=== PATIENT | male | born 1950 | race Hispanic/Latino ===

== ENCOUNTER 2017-11-22 15:28 | Emergency (ER) | payer BC ==
--- OUTSIDE RECORDS SUMMARY | 2017-11-22 15:30 | XMS REPORT ---
:1950 Author Organization eClinicalWorks Care Team Providers Name Role Phone Cresencio Radha Provider Role Unavailable Allergies, Adverse Reactions, Alerts Substance Reaction Event Type penicillin Info Not Available Drug Allergy Amoxicillin Info Not Available Drug Allergy Problems Problem Type Condition Code Onset Dates Condition Status Problem Transient ischemic attack G45.9 Active Problem Overweight E66.3 Active Problem Macular degeneration H35.30 Active Problem Benign prostatic hypertrophy with N40.1 Active lower urinary tract symptoms (LUTS) Problem Paresthesia of both hands R20.2 Active Problem BPH w/o urinary obs/LUTS N40.0 Active Problem GERD (gastroesophageal reflux K21.9 Active disease) Problem Anemia D64.9 Active Problem History of transient ischemic attack Z86.73 Active (TIA) Problem Adult general medical examination Z00.00 Active Problem Vitamin D deficiency E55.9 Active Problem Dizziness R42 Active Assessment BPH w/o urinary obs/LUTS N40.0 Active Problem Hyperlipidemia E78.5 Active Problem Primary insomnia F51.01 Active Problem Diverticulosis of colon (without K57.30 Active mention of hemorrhage) Medications Medication Code Code Instructions Start End Status Dosage System Date Date Lipitor [facility] 01719012045 10 MG Orally Active 1 tablet Once a day Aspir-Low [facility] 52209895168 81 MG Orally Active 1 tablet Once a day ProAir HFA [facility] 75423393989 108 (90 Base) Active 2 puffs as MCG/ACT needed Inhalation every 6 hrs Glucosamine ND 79147151429 - Orally Active not Chondroitin Plus defined Ambien [facility] 08837163641 10 MG Orally Active 1 tablet Once a day at bedtime as needed Vitamin A [facility] 92150433507 8000 UNIT Active not Orally defined Daily Vitamins [facility] 03848336534 - Orally Once a Active 1 tablet day Clarithromycin ND 75936661839 500 MG Orally Active 1 tablet every 12 hrs Trazodone HCl ND 45181227473 100 MG Orally Active 1 tablet Once a day at bedtime Protonix ND 66102221363 40 MG Orally Sep 04, Active 1 tablet Once a day 2017 Celebrex [facility] 64011167339 200 MG Orally Active 1 capsule Once a day with food Fish Oil [facility] 07094674301 1200 MG Orally Active 2 capsule Once a day Results No Known Results Summary Purpose eClinicalWorks Submission
--- NOTE | 2017-11-22 16:53 | ER ---
Nurse's Notes [facility] Name: Oleksandr Caldera Age: 67 yrs Sex: Male : 1950 Arrival Date: 11/22/2017 Time: 15:29 Bed 14 Private MD: Diagnosis: Acute sinusitis;Headache Presentation: 11/22 15:38 Presenting complaint: Patient states: Headache with light sensitivity that started aj Thursday. Patient reports having Sinus SX 1 week before headache started. Transition of care: patient was not received from another setting of care. Mechanism of Injury: No Mechanism of Injury. The patient denies any loss of vision. Onset of symptoms was November 20, 2017. Initial Sepsis Screen: Does the patient meet any 2 criteria? No. Patient's initial sepsis screen is negative. Does the patient have a suspected source of infection? No. Patient's initial sepsis screen is negative. Care prior to arrival: None. 15:38 Method Of Arrival: Ambulatory aj 15:38 Acuity: TAMANNA 3 aj Triage Assessment: 15:40 General: Appears in no apparent distress. uncomfortable, Behavior is calm, cooperative, aj appropriate for age. Pain: Complains of pain in face and right eye Pain currently is 8 out of 10 on a pain scale. EENT: Reports pain in right eye and left eye. Neuro: Level of Consciousness is awake, alert, obeys commands, Oriented to person, place, time, situation, Appropriate for age Gait is steady, Reports headache. Respiratory: Airway is patent Respiratory effort is even, unlabored, Respiratory pattern is regular, symmetrical. GI: Abdomen is flat, non-distended, Reports nausea. Derm: Skin is intact, is healthy with good turgor, Skin is pink, warm \T\ dry. normal. Historical: - Allergies: 15:40 PENICILLINS; aj - Home Meds: 15:40 Ambien Oral [Active]; Baclofen Oral [Active]; Elavil [Active]; Lipitor Oral [Active]; aj losartan-hydrochlorothiazide Oral [Active]; Protonix Oral [Active]; - PMHx: 15:40 cardiac stents; chronic neck pain; Diverticulitis; Hypertension; aj - PSHx: 15:40 Appendectomy; cardiac cath; diverticulitis repair; Sinus; aj - Immunization history:: Adult Immunizations up to date. - Social history:: Smoking status: Patient/guardian denies using tobacco. Screenin:02 Abuse screen: Denies threats or abuse. Nutritional screening: No deficits noted. la1 Tuberculosis screening: No symptoms or risk factors identified. Fall Risk None identified. Assessment: 16:01 General: Appears uncomfortable, Behavior is calm, cooperative. Pain: Complains of pain la1 in left zoroastrianism and left eye and right eye. Neuro: Level of Consciousness is awake, alert, obeys commands, Oriented to person, place, time, situation, Cable Splicer Helper are equal bilaterally Facial symmetry appears normal, Pupils are PERRLA. Cardiovascular: Capillary refill < 3 seconds Patient's skin is warm and dry. Respiratory: Airway is patent Respiratory effort is even, unlabored, Respiratory pattern is regular, symmetrical, Breath sounds are clear bilaterally. GI: No signs and/or symptoms were reported involving the gastrointestinal system. : No signs and/or symptoms were reported regarding the genitourinary system. EENT: Eyes pt reports photosensitivity. Sclera/Cornea are clear in outer aspect of conjuctiva of right eye, iris of right eye, inner aspect of conjuctiva of right eye, outer aspect of conjuctiva of left eye, iris of left eye and inner aspect of conjunctiva of left eye. Vital Signs: 15:40 BP 140 / 77; Pulse 71; Resp 16; Temp 98.3; Pulse Ox 97% on R/A; Weight 82.55 kg; Height aj 5 ft. 8 in. (172.72 cm); Pain 8/10; 15:40 Body Mass Index 27.67 (82.55 kg, 172.72 cm) aj ED Course: 15:29 Patient arrived in ED. sb2 15:39 Triage completed. aj 15:40 Arm band placed on right wrist. Patient placed in waiting room. aj 15:53 Chavez Calixto, BENY is Primary Nurse. la1 15:54 Marichuy Carver F[facility]-C [facility]. snw 15:54 Ba Jerez MD is Attending Physician. snw 16:03 Call light in reach. la1 16:25 CT Head Brain wo Cont In Process Unspecified. EDMS 17:10 No provider procedures requiring assistance completed. Patient did not have IV access la1 during this emergency room visit. Administered Medications: 17:05 Drug: LevaQUIN 500 mg Route: PO; la1 17:10 Follow up: Response: No adverse reaction la1 17:05 Drug: [place] 5 mg-325 mg 1 tabs Route: PO; la1 17:10 Follow up: Response: No adverse reaction; Pain is decreased la1 17:05 Drug: Zofran 4 mg Route: PO; la1 17:10 Follow up: Response: No adverse reaction la1 Outcome: 16:52 Discharge ordered by . alpa 17:11 Discharged to home ambulatory. la1 17:11 Condition: stable 17:11 Discharge instructions given to patient, Instructed on discharge instructions, follow up and referral plans. medication usage, Demonstrated understanding of instructions, follow-up care, medications, Prescriptions given X 3. 17:11 Patient left the ED. la1 Signatures: Dispatcher [employer] EDPaulette Downing, RN RN Marichuy Mcmahan, CRYSTALLIZER OPERATOR-C CRYSTALLIZER OPERATOR-Csnw Chavez Calixto RN RN la1 Ida Graves2
--- NOTE | 2017-11-22 16:53 | EDPHYS ---
Physician Documentation [facility] Name: Oleksandr Caldera Age: 67 yrs Sex: Male : 1950 Arrival Date: 11/22/2017 Time: 15:29 Bed 14 Private MD: ED Physician Ba Jerez HPI: 11/22 16:17 This 67 yrs old Male presents to ER via Ambulatory with complaints of Eye Pain.snw 16:17 pain with movement. Onset: The symptoms/episode began/occurred suddenly, 3 day(s) ago, snw and became persistent. Duration: the symptoms are continuous. Associated signs and symptoms: Pertinent positives: headache. Severity of symptoms: At their worst the symptoms were moderate. The patient has experienced a previous episode, last time EOM were not painful. The patient has not recently seen a physician. Historical: - Allergies: 15:40 PENICILLINS; aj - Home Meds: 15:40 Ambien Oral [Active]; Baclofen Oral [Active]; Elavil [Active]; Lipitor Oral [Active]; aj losartan-hydrochlorothiazide Oral [Active]; Protonix Oral [Active]; - PMHx: 15:40 cardiac stents; chronic neck pain; Diverticulitis; Hypertension; aj - PSHx: 15:40 Appendectomy; cardiac cath; diverticulitis repair; Sinus; aj - Immunization history:: Adult Immunizations up to date. - Social history:: Smoking status: Patient/guardian denies using tobacco. ROS: 16:15 Constitutional: Negative for fever, chills, and weight loss, ENT: Negative for injury, snw pain, and discharge, Neck: Negative for injury, pain, and swelling, Cardiovascular: Negative for chest pain, palpitations, and edema, Respiratory: Negative for shortness of breath, cough, wheezing, and pleuritic chest pain, Abdomen/GI: Negative for abdominal pain, nausea, vomiting, diarrhea, and constipation, Back: Negative for injury and pain, : Negative for injury, bleeding, discharge, and swelling, MS/Extremity: Negative for injury and deformity, Skin: Negative for injury, rash, and discoloration. 16:15 Eyes: Positive for photophobia. 16:15 Neuro: Positive for headache. Exam: 16:14 Constitutional: This is a well developed, well nourished patient who is awake, alert, snw and in no acute distress. Head/Face: Normocephalic, atraumatic. ENT: Nares patent. No nasal discharge, no septal abnormalities noted. Tympanic membranes are normal and external auditory canals are clear. Oropharynx with no redness, swelling, or masses, exudates, or evidence of obstruction, uvula midline. Mucous membranes moist. Neck: Trachea midline, no thyromegaly or masses palpated, and no cervical lymphadenopathy. Supple, full range of motion without nuchal rigidity, or vertebral point tenderness. No Meningismus. Chest/axilla: Normal chest wall appearance and motion. Nontender with no deformity. No lesions are appreciated. Cardiovascular: Regular rate and rhythm with a normal S1 and S2. No gallops, murmurs, or rubs. Normal PMI, no JVD. No pulse deficits. Respiratory: Lungs have equal breath sounds bilaterally, clear to auscultation and percussion. No rales, rhonchi or wheezes noted. No increased work of breathing, no retractions or nasal flaring. Abdomen/GI: Soft, non-tender, with normal bowel sounds. No distension or tympany. No guarding or rebound. No evidence of tenderness throughout. Back: No spinal tenderness. No costovertebral tenderness. Full range of motion. Skin: Warm, dry with normal turgor. Normal color with no rashes, no lesions, and no evidence of cellulitis. MS/ Extremity: Pulses equal, no cyanosis. Neurovascular intact. Full, normal range of motion. Psych: Awake, alert, with orientation to person, place and time. Behavior, mood, and affect are within normal limits. 16:14 Eyes: Pupils: no acute changes, Extraocular movements: reported tenderness, Conjunctiva: normal. 16:14 Neuro: Orientation: is normal, Mentation: is normal, Memory: is normal, Cranial nerves: grossly normal. Vital Signs: 15:40 BP 140 / 77; Pulse 71; Resp 16; Temp 98.3; Pulse Ox 97% on R/A; Weight 82.55 kg; Height aj 5 ft. 8 in. (172.72 cm); Pain 8/10; 15:40 Body Mass Index 27.67 (82.55 kg, 172.72 cm) aj MDM: 15:54 Patient medically screened. snw 17:05 Data reviewed: vital signs, nurses notes. Data interpreted: Pulse oximetry: on room air snw is 97 %. Interpretation: normal. Counseling: I had a detailed discussion with the patient and/or guardian regarding: the historical points, exam findings, and any diagnostic results supporting the discharge/admit diagnosis, the presence of at least one elevated blood pressure reading (>120/80) during this emergency department visit, radiology results, the need for outpatient follow up, to return to the emergency department if symptoms worsen or persist or if there are any questions or concerns that arise at home. Special discussion: Based on the history and exam findings, there is no indication for further emergent testing or inpatient evaluation. I discussed with the patient/guardian the need to see the ENT specialist for further evaluation of the symptoms. 17:06 ED course: Continue Levaquin and f/u with Dr. Shabazz. snw 11/22 15:55 Order name: CT Head Brain wo Cont snw 11/22 15:56 Order name: O2 Per Protocol: 15L via NRB x 15 min; Complete Time: 16:01 snw Administered Medications: 17:05 Drug: LevaQUIN 500 mg Route: PO; la1 17:10 Follow up: Response: No adverse reaction la1 17:05 Drug: [place] 5 mg-325 mg 1 tabs Route: PO; la1 17:10 Follow up: Response: No adverse reaction; Pain is decreased la1 17:05 Drug: Zofran 4 mg Route: PO; la1 17:10 Follow up: Response: No adverse reaction la1 Disposition: 17:30 Co-signature as Attending Physician, Ba Jerez MD. rn Disposition: 11/22/17 16:52 Discharged to Home. Impression: Acute sinusitis, Headache. - Condition is Stable. - Discharge Instructions: General Headache Without Cause, Sinus Headache, Sinusitis, Adult, Rehydration, Adult. - Prescriptions for Zofran 4 mg Oral Tablet - take 1 tablet by ORAL route 3 times per day As needed; 6 tablet. Zyrtec 10 mg Oral Tablet - take 1 tablet by ORAL route once daily As needed; 20 tablet. Diclofenac Sodium 75 mg Oral Tablet Sustained Release - take 1 tablet by ORAL route 2 times per day; 30 tablet. - Work release form, Medication Reconciliation Form, Thank You Letter, Antibiotic Education, Prescription Opioid Use form. - Follow up: Private Physician; When: 1 - 2 days; Reason: Recheck today's complaints, Continuance of care, Re-evaluation by your physician. Follow up: Emergency Department; When: As needed; Reason: Worsening of condition. Signatures: Dispatcher [employer] EDPaulette Downing RN Marichuy Smith, SLIP CASTER-C SLIP CASTER-Csnw Ba Jerez MD MD rn Attema, Lee, RN RN laGrazyna Corrections: (The following items were deleted from the chart) 17:11 16:52 11/22/2017 16:52 Discharged to Home. Impression: Acute sinusitis; Headache. la1 Condition is Stable. Forms are Medication Reconciliation Form, Thank You Letter, Antibiotic Education, Prescription Opioid Use. Follow up: Private Physician; When: 1 - 2 days; Reason: Recheck today's complaints, Continuance of care, Re-evaluation by your physician. Follow up: Emergency Department; When: As needed; Reason: Worsening of condition. snw
[2017-11-22] MEDS ORDERED: ONDANSETRON 4 MG (ODT) TAB ONE (16:54)
[2017-11-22] MEDS ORDERED: levoFLOXacin 500 MG TAB ONE (16:54)
[2017-11-22] MEDS ORDERED: HYDROCODONE/APAP 5/325 MG TAB ONE (16:54)
--- NOTE | 2017-11-22 17:29 | RAD REPORT ---
EXAM DESCRIPTION: CT - Head Brain Wo Cont - 11/22/2017 4:25 pm CLINICAL HISTORY: Headache COMPARISON: 03/16/2017 TECHNIQUE: All CT scans are performed using dose optimization technique as appropriate and may inclu de automated exposure control or mA/KV adjustment according to patient size. FINDINGS: No intracranial hemorrhage, hydrocephalus or extra-axial fluid collection.No areas of brai n edema or evidence of midline shift. Extensive multifocal paranasal sinus disease is present with evidence of previous sinus surgery. The findings are most severe in the right maxillary antrum and ethmoid air cells. The left maxillary antr um sphenoid sinuses are also involved, however. The calvarium is intact. IMPRESSION: No acute intracranial abnormality. Significant multifocal chronic paranasal sinus disease.
== END 2017-11-22 17:11 | disposition home or self-care (01) ==
LOC: ER 15:28
DX: J01.90 Acute sinusitis, unspecified (principal); I10 Essential (primary) hypertension; Z95.818 Presence of other cardiac implants and grafts; Z88.0 Allergy status to penicillin
CPT/HCPCS: 70450; 99283

== ENCOUNTER 2017-11-27 08:31 | Day surgery (SDC) | payer BC ==
--- OUTSIDE RECORDS SUMMARY | 2017-11-27 08:43 | XMS REPORT ---
[...] End Status Dosage System Date Date Lipitor [facility] 61290143258 10 MG Orally Active 1 tablet Once a day Aspir-Low [facility] 89263055453 81 MG Orally Active 1 tablet Once a day ProAir HFA [facility] 37643500876 108 (90 Base) Active 2 puffs as MCG/ACT needed Inhalation every 6 hrs Glucosamine ND 05420593485 - Orally Active not Chondroitin Plus defined Ambien [facility] 94641032964 10 MG Orally Active 1 tablet Once a day at bedtime as needed Vitamin A [facility] 31699691437 8000 UNIT Active not Orally defined Daily Vitamins [facility] 38682029043 - Orally Once a Active 1 tablet day Clarithromycin ND 33720061579 500 MG Orally Active 1 tablet every 12 hrs Trazodone HCl ND 89899750053 100 MG Orally Active 1 tablet Once a day at bedtime Protonix ND 51298277212 40 MG Orally Sep 04, Active 1 tablet Once a day 2017 Celebrex [facility] 33260771437 200 MG Orally Active 1 capsule Once a day with food Fish Oil [facility] 01843602376 1200 MG Orally Active 2 capsule Once a day Results No Known Results Summary Purpose eClinicalWorks Submission
[2017-11-27] MEDS ORDERED: PROPOFOL 200 MG/20 ML VIAL IV ONE (08:44)
[2017-11-27] MEDS ORDERED: LIDOCAINE 2% MPF 5 ML VIAL ONE (08:45)
[2017-11-27] MEDS ORDERED: MIDAZOLAM HCL 2 MG/2 ML INJ ONE (08:45)
[2017-11-27] MEDS ORDERED: FENTANYL CITR 100 MCG/2 ML ONE (08:46)
[2017-11-27] MEDS ORDERED: LIDOCAINE 1% 20 ML MDV ONE (08:54)
[2017-11-27] MEDS ORDERED: CEFAZOLIN/SWI 1gm 1 GM/10 ML SYR ONE (09:01)
[2017-11-27] MEDS ORDERED: Ringers Lactate 1,000 ML IV ONE (09:01)
--- NOTE | 2017-11-27 09:18 | RAD REPORT ---
EXAM DESCRIPTION: RAD - Chest Pa And Lat (2 Views) - 11/27/2017 9:08 am CLINICAL HISTORY: Chest pain. COMPARISON: None. FINDINGS: The lungs are clear. The heart is normal in size. No displaced fractures. IMPRESSION: No acute or concerning finding suspected.
[2017-11-27 09:20] LABS: Absolute Lymphocytes (CBC) 1.2 K/uL (0.7-4.9); Absolute Monocytes 0.6 K/uL (0.1-1.3); Absolute Neutrophil 7.1 K/uL (1.8-8.0); Basophils % 0.4 % (0-1.3); Eosinophils % 0.9 % (0-4.4); Hematocrit 34.9 % (39.6-49.0); Lymphocytes % 13.1 % (15.3-44.8); MCH 29.3 pg (27.0-35.0); MCV 87.2 fL (80-100); Monocytes % 6.4 % (3.3-12.3)
[2017-11-27] MEDS ORDERED: CODEINE 30MG/APAP 300MG TAB ONE (11:24)
--- NOTE | 2017-11-27 15:52 | EKG ---
Test Date: 2017-11-27 Test Time: 08:58:11 Medical Clinic Manager: CALVIN MEASUREMENT RESULTS: Intervals: Rate: 60 FL: 212 QRSD: 94 QT: 414 QTc: 414 [place]: P: 22 FL: 212 QRS: -18 T: 21 INTERPRETIVE STATEMENTS: Sinus rhythm with 1st degree AV block Inferior infarct, age undetermined Abnormal ECG Compared to ECG 11/04/2017 16:46:33 First degree AV block now present Left-axis deviation no longer present Myocardial infarct finding still present Electronically Signed On 11-27-17 15:51:37 CDT by Bang Bassett
--- NOTE | 2017-11-27 21:48 | OP ---
Date of Procedure: 11/27/2017 Surgeon: Bill Miller MD Preoperative Diagnoses: Bilateral eye pain with elevated sed rate and CRP, rule out temporal arterit is. Postoperative Diagnoses: Bilateral eye pain with elevated sed rate and CRP, rule out temporal arteri tis. Procedure Performed: Right temporal artery biopsy. Estimated Blood Loss: Minimal. Specimen: Right temporal artery. Findings: As above. Anesthesia: MAC. Complications: None. Disposition: The patient tolerated the procedure in stable condition and taken to Recovery in good g eneral condition. Operative Note: The patient was brought to the OR and placed in supine position. MAC anesthesia was begun. The patient was prepped and draped in usual sterile fashion. Lidocaine 1% was infiltrated l ocally. The branch of the temporal artery was identified utilizing ultrasound Doppler anterior and s uperior to the right. Then, a 4 cm incision made, subcutaneous tissue divided. The proximal distal control obtained of the temporal artery branch and then tied off with 4-0 silk and a 4-cm segment of the temporal artery was removed and sent to Pathology as specimen. Wound irrigated. Bleeding contro lled with cautery. A 4-0 chromic used to approximate the subcutaneous tissue and close the skin. St erile dressing was applied. The patient was awakened and taken to Recovery in good general condition . Discharge Note: The patient will go to Day Surgery and home when stable. Disposition: Home. Condition: Stable. Discharge Instructions: Resume home medications and diet. Activity as tolerated. No heavy lifting. May shower in 2 days. Keep Steri-Strips on at all times. Follow with Dr. Dr. Pichardo and follow up in my office in 1 to 2 weeks. RUBEN/TYLORL Voice ID: [id number] Report ID: [id number]
== END 2017-11-27 12:10 | disposition home or self-care (01) ==
LOC: OR 08:31
PROVIDERS: ATTEND Surgery
PROC: 03BS0ZX Excision of Right Temporal Artery, Open Approach, Diagnostic (ICD-10-PCS; principal; 2017-11-27 10:00)
DX: I70.8 Atherosclerosis of other arteries (principal); R79.82 Elevated C-reactive protein (CRP); R70.0 Elevated erythrocyte sedimentation rate; I25.10 Atherosclerotic heart disease of native coronary artery without angina pectoris; I10 Essential (primary) hypertension; N40.0 Benign prostatic hyperplasia without lower urinary tract symptoms; K21.9 Gastro-esophageal reflux disease without esophagitis; I25.2 Old myocardial infarction; Z87.891 Personal history of nicotine dependence; Z88.0 Allergy status to penicillin
CPT/HCPCS: 36415; 71046; 85025; 88305; 93005; J0690; J2250; J3010

== ENCOUNTER → 2020-12-05 | Day surgery (SDC) | payer BC ==
[~2020-12-05] MED LIST: CODEINE 30MG/APAP 300MG TAB ONE; LIDOCAINE 1% MPF 5 ML VIAL ONE; Ringers Lactate 1,000 ML IV ONE; propofoL 200 MG/20 ML VIAL IV ONE
--- NOTE | 2020-12-05 08:02 | ENDO RPT ---
[address], [address] COLONOSCOPY PROCEDURE REPORT EXAM DATE: 12/05/2020 PATIENT NAME: Oleksandr Caldera MR #: [id number] BIRTHDATE: 1950 ATTENDING: Augusto Velez Dr STATUS: outpatient HIP HOP DANCER: Vandana Green RN and Martha Geovannywaldemar Bueno INDICATIONS: The patient is a 70 yr old Male here for a colonoscopy due to personal history of colon polyps PROCEDURE PERFORMED: Colonoscopy MEDICATIONS: Per Anesthesia. ESTIMATED BLOOD LOSS: None CONSENT: The patient understands the risks and benefits of the procedure and understands that these risks include, but are not limited to: sedation, allergic reaction, infection, perforation and/or bleeding. Alternative means of evaluation and treatment include, among others: physical exam, x-rays, and/or surgical intervention. The patient elects to proceed with this endoscopic procedure. DESCRIPTION OF PROCEDURE: During intra-op preparation period all mechanical medical equipment was checked for proper function. Hand hygiene and appropriate measures for infection prevention was taken. Procedure, possible complications, alternatives including, but not limited to possibility of bleeding, perforation, tear, infection, sepsis, need for surgery, need for blood transfusion, were explained to the patient. After the risks, benefits and alternatives of the procedure were thoroughly explained, Informed consent was verified, confirmed and timeout was successfully executed by the treatment team. The patient was placed in the left lateral position. A digital rectal exam was performed and revealed an enlarged prostate. After appropriate level of anesthesia, the scope was passed. The EC-[id number] ([id number]) endoscope was introduced through the anus and advanced to the cecum, which was identified by both the appendix and ileocecal valve. The quality of the prep was good. The instrument was then slowly withdrawn as the colon was fully examined. Scope withdrawal time was 7 minutes. COLON FINDINGS: Mild diverticulosis was noted throughout the entire examined colon. No bleeding was noted from the diverticulosis. Small internal hemorrhoids were found. Retroflexed views revealed small hemorrhoids. The scope was then completely withdrawn from the patient and the procedure terminated. ADVERSE EVENTS: There were no complications. IMPRESSIONS: 1. Mild diverticulosis throughout the entire examined colon 2. Small internal hemorrhoids 3. Intubation to cecum 4. Personal history of colon polyps RECOMMENDATIONS: fiber rich diet RECALL: Return in 3-5 year(s) for Colonoscopy. Augusto Velez Dr eSigned: Augusto Velez Dr 12/05/2020 8:02 AM cc: CPT CODES: ICD9 CODES: 600.0 Hypertrophy (benign) of prostate PATIENT NAME: Oleksandr Caldera MR#: [id number]
--- NOTE | 2020-12-05 08:13 | ENDO RPT ---
[address], [address] COLONOSCOPY PROCEDURE REPORT EXAM DATE: 12/05/2020 PATIENT NAME: Oleksandr Caldera MR #: [id number] BIRTHDATE: 1950 ATTENDING: Augusto Velez Dr STATUS: outpatient CHAIN REPAIRER: Vandana Green RN and Martha Geovannywaldemar Bueno INDICATIONS: The patient is a 70 yr old Male here for a colonoscopy due to personal history of colon polyps PROCEDURE PERFORMED: Colonoscopy MEDICATIONS: Per Anesthesia. ESTIMATED BLOOD LOSS: None CONSENT: The patient understands the risks and benefits of the procedure and understands that these risks include, but are not limited to: sedation, allergic reaction, infection, perforation and/or bleeding. Alternative means of evaluation and treatment include, among others: physical exam, x-rays, and/or surgical intervention. The patient elects to proceed with this endoscopic procedure. DESCRIPTION OF PROCEDURE: During intra-op preparation period all mechanical medical equipment was checked for proper function. Hand hygiene and appropriate measures for infection prevention was taken. Procedure, possible complications, alternatives including, but not limited to possibility of bleeding, perforation, tear, infection, sepsis, need for surgery, need for blood transfusion, were explained to the patient. After the risks, benefits and alternatives of the procedure were thoroughly explained, Informed consent was verified, confirmed and timeout was successfully executed by the treatment team. The patient was placed in the left lateral position. A digital rectal exam was performed and revealed an enlarged prostate. After appropriate level of anesthesia, the scope was passed. The EC-[id number] ([id number]) endoscope was introduced through the anus and advanced to the cecum, which was identified by both the appendix and ileocecal valve. The quality of the prep was good. The instrument was then slowly withdrawn as the colon was fully examined. Scope withdrawal time was 7 minutes. COLON FINDINGS: Mild diverticulosis was noted throughout the entire examined colon. No bleeding was noted from the diverticulosis. Anastomosis at 20 cm from the anal verge. Small internal hemorrhoids were found. Retroflexed views revealed small hemorrhoids. The scope was then completely withdrawn from the patient and the procedure terminated. ADVERSE EVENTS: There were no complications. IMPRESSIONS: 1. Mild diverticulosis throughout the entire examined colon 2. Anastomosis at 20 cm from the anal verge 3. Small internal hemorrhoids 4. Intubation to cecum 5. Personal history of colon polyps 6. Enlarged prostate RECOMMENDATIONS: fiber rich diet RECALL: Return in 3-5 year(s) for Colonoscopy. Augusto Velez Dr eSigned: Augusto Velez Dr 12/05/2020 8:13 AM Revised: 12/05/2020 8:13 AM cc: CPT CODES: ICD9 CODES: 600.0 Hypertrophy (benign) of prostate PATIENT NAME: Oleksandr Caldera MR#: [id number]
[2020-12-05 09:20] VITALS: BP 112/84; TEMP 97.1; O2SAT 100
== END ==
LOC: OR 06:35
PROVIDERS: ATTEND Internal Medicine Gastroenterology
PROC: 0DJD8ZZ Inspection of Lower Intestinal Tract, Via Natural or Artificial Opening Endoscopic (ICD-10-PCS; principal; 2020-12-05 07:30)
DX: Z86.010 Personal history of colon polyps (principal); K64.8 Other hemorrhoids; N40.0 Benign prostatic hyperplasia without lower urinary tract symptoms; K57.30 Diverticulosis of large intestine without perforation or abscess without bleeding; K63.89 Other specified diseases of intestine; Z20.822 Contact with and (suspected) exposure to COVID-19
CPT/HCPCS: 45378; U0002; J2704; J7120

== ENCOUNTER 2020-12-11 06:24 | Day surgery (SDC) | payer BC ==
--- NOTE | 2020-12-07 12:17 | RAD REPORT ---
EXAM DESCRIPTION: RAD - Chest Pa And Lat (2 Views) - 12/07/2020 12:10 pm CLINICAL HISTORY: preop Chest pain. COMPARISON: Chest Pa And Lat (2 Views) dated 11/27/2017; Chest Pa And Lat (2 Views) dated 09/07/2017; Chest Pa And Lat (2 Views) dated 06/03/2017; CHEST SINGLE VIEW dated 08/14/2015 FINDINGS: The lungs are clear. The heart is upper limit of normal in size. No displaced fractures.
[2020-12-07 12:21] LABS: Potassium 3.8 mmol/L (3.5-5.1)
[2020-12-07 12:27] LABS: Protime INR 1.17
[2020-12-07 12:30] LABS: Absolute Lymphocytes (CBC) 1.2 K/uL (0.7-4.9); Basophils % 0.7 % (0-1.3); Hematocrit 39.8 % (39.6-49.0); Lymphocytes % 21.8 % (15.3-44.8); MPV 9.3 fL (7.6-11.3); RBC Red Blood Cell Count 4.55 M/uL (4.33-5.43)
[2020-12-11] MEDS ORDERED: Ringers Lactate 1,000 ML IV ONE (06:58)
[2020-12-11] MEDS ORDERED: FENTANYL CITR 100 MCG/2 ML ONE (07:24)
[2020-12-11] MEDS ORDERED: LIDOCAINE 1% MPF 5 ML VIAL ONE (07:24)
[2020-12-11] MEDS ORDERED: propofoL 200 MG/20 ML VIAL IV ONE (07:24)
[2020-12-11] MEDS ORDERED: BUPIVACAINE 0.25% PF 30 ML VIAL ONE (07:27)
[2020-12-11] MEDS ORDERED: LIDOCAINE 1% MPF 30 ML VIAL ONE (07:27)
[2020-12-11] MEDS ORDERED: GENTAMICIN 80 MG/100 ML BAG 80 MG/100 ML BAG IV ONE (07:48)
[2020-12-11] MEDS ORDERED: CLINDAMYCIN INJ 600 MG in NA CHLORIDE 0.9% 50 ML IV SCH (08:00)
[2020-12-11] MEDS: BACITRACIN OINTMENT 15 GM TUBE TOP ONE ×2 (08:02→08:40)
[2020-12-11] MEDS ORDERED: EPHEDRINE SULF 50 MG/ML VIAL ONE (08:14)
[2020-12-11] MEDS ORDERED: NS 0.9% VIAL 10 ML ONE (08:14)
[2020-12-11] MEDS ORDERED: KETOROLAC 30 MG/ML INJ ONE (08:16)
[2020-12-11] MEDS ORDERED: ONDANSETRON 4 MG/2 ML VIAL ONE (08:26)
[2020-12-11] MEDS ORDERED: HYDROCODONE/APAP 5/325 MG TAB PO PRN (09:20)
[2020-12-11 09:37] VITALS: BP 137/62; TEMP 97.1; O2SAT 100
[2020-12-11] MEDS ORDERED: CODEINE 30MG/APAP 300MG TAB PO ONE (09:50)
--- NOTE | 2020-12-11 20:15 | OP ---
Date of Procedure: 12/11/2020 Surgeon: NHI VACA Preoperative Diagnosis: Redundant foreskin. Postoperative Diagnosis: Redundant foreskin. Principle Procedure: 1.Penile block. 2.Sleeve circumcision. Indication For Procedure: Mr. Caldera is a 70-year-old gentleman who [facility] among other things, complaints of progressive redundancy of his foreskin. Because this was bothers ome to him as well as a hygiene issue, he elected to proceed with elective circumcision. Procedure In Detail: The patient was consented in the preoperative holding area before being transfe rred to the operative suite where general anesthesia was induced using an LMA. He was given clindamy amauri and gentamicin 80 mg IV antimicrobial prophylaxis with pneumoboots provided for DVT prophylaxis. The clindamycin and gentamicin were chosen because of his preexisting penicillin allergy. He was childs pine on the procedure table and his infrapubic region was shaved and his genitalia was prepped and dr aped in standard fashion using Betadine. Then, a penile block was performed. Penile block: Using a 50:50 mixture of 0.25% Marcaine plain and 1% lidocaine, 30 cc of the mixture was injected in the infrapubic region in the midline and in the region of the neurovascular bundles bilaterally. Onc e the block was completed, the case was then begun. Identifying a conservative marking just proximal to the holl[place] of the glans and an additional preputial margin that was approximately 1 cm in length, the skin was incised and the intervening tissue was then incised in the dorsal midline and removed u sing electrocautery. A careful search for any bleeding vessels was then undertaken with Adson forcep s used to pinpoint fulgurate each spot of any potential oozing vessel. Irrigation was then applied. An additional fulguration was then applied as necessary. Then quadrant sutures were placed and alberto nstruction of a portion of the frenulum with mild excision of some redundancy of tissue there was the n performed. The reconstruction of the frenulum was done with 4-0 chromic suture in a running fashio n. The remainder of the circumcision reconstruction was then performed using 3-0 chromic suture in a running horizontal mattress fashion. In the end, the cosmetic result was excellent and the area was completely hemostatic. Wet and dry was used to cleanse his genitalia, and Betadine was applied to t he incision and suture line site. A Mary and Coban were then applied around the phallus as a gentle pressure dressing, and the patient was awakened from general anesthesia. He was then transferred to a stretcher and then to the recovery room in good condition. Complications: None. Estimated Blood Loss: Less than 5 cc. Discharge Disposition: He may resume his baby aspirin if he stopped taking it, certainly tomorrow as long as there is no sign of any active bleeding. Certainly, he needs to take this because of his hi story of temporal arteritis. Otherwise, followup should be established within the next 1 to 2 weeks for interval assessment. Assessment of his lower urinary symptoms on the Myrbetriq should be made at that time as well. CEE/TRISTIN Voice ID: [id number] Report ID: [id number]
== END 2020-12-11 10:17 | disposition home or self-care (01) ==
LOC: OR 06:24
PROVIDERS: ATTEND Urology
PROC: 0VTTXZZ Resection of Prepuce, External Approach (ICD-10-PCS; principal; 2020-12-11 07:30)
DX: N47.8 Other disorders of prepuce (principal); Z20.822 Contact with and (suspected) exposure to COVID-19
CPT/HCPCS: 93005; 85025; 80048; 36415; 85610; 88304; 71046; 54150; U0002; J2704; J3010; J7120; J1580; J2405

== ENCOUNTER 2023-12-22 13:05 | Day surgery (SDC) | payer OTHER ==
[2023-12-18 14:38] LABS: Absolute Basophils 0.1 K/uL (0-0.5); Absolute Eosinophils 0.3 K/uL (0-0.5); Absolute Lymphocytes (CBC) 1.2 K/uL (0.7-4.9); Absolute Monocytes 0.4 K/uL (0.1-1.3); Absolute Neutrophil 3.3 K/uL (1.8-8.0); Eosinophils % 5.2 % (0-4.4); Hematocrit 37.2 % (39.6-49.0); Hemoglobin 12.4 g/dL (13.6-17.9); Lymphocytes % 22.6 % (15.3-44.8); MCH 29.6 pg (27.0-35.0); MCHC 33.5 g/dL (32.0-36.0); MCV 88.5 fL (80-100); MPV 9.3 fL (7.6-11.3); Monocytes % 8.1 % (3.3-12.3); Neutrophils % 63.1 % (41.7-73.7); Platelets 180 thou/uL (152-406); Red Cell Distribution Width 13.3 % (12.1-15.2)
[2023-12-18 14:44] LABS: PT Prothrombin Time 12.8 SECONDS (9.5-12.5); PTT, Activated Partial Thromb 30.5 SECONDS (24.3-36.9); Protime INR 1.17
--- NOTE | 2023-12-18 16:06 | RAD REPORT ---
EXAM DESCRIPTION: RAD - Chest Pa And Lat (2 Views) - 12/18/2023 2:02 pm CLINICAL HISTORY: PRE OP LEFT HEART CATH. Hypertension COMPARISON: Chest Pa And Lat (2 Views) dated 12/07/2020; Chest Pa And Lat (2 Views) dated 11/27/2017; Chest Pa And Lat (2 Views) dated 09/07/2017; Chest Pa And Lat (2 Views) dated 06/03/2017 TECHNIQUE: PA and lateral views of the chest were obtained. FINDINGS: The lungs are clear. Heart size is normal and central vasculature is within normal limits. No pleural effusion or pneumothorax seen. No acute bony finding noted. IMPRESSION: No acute cardiopulmonary process.
--- NOTE | 2023-12-21 14:13 | EKG ---
Test Date: 2023-12-18 Test Time: 13:55:41 Optical Scientist: MEASUREMENT RESULTS: Intervals: Rate: 52 [place]: 208 QRSD: 88 QT: 448 QTc: 416 [place]: P: 40 [place]: 208 QRS: -38 T: 32 INTERPRETIVE STATEMENTS: Sinus bradycardia Left axis deviation Inferior infarct, age undetermined Abnormal ECG Compared to ECG 12/07/2020 10:54:55 Left-axis deviation now present Myocardial infarct finding now present Incomplete right bundle-branch block no longer present Electronically Signed On 12-21-23 14:06:54 CDT by Charanjit Carroll
[2023-12-22] MEDS ORDERED: NA CHLORIDE 0.9% 500 ML ONE (13:07)
[2023-12-22] MEDS ORDERED: LIDOCAINE 1% 20 ML MDV ONE (14:08)
[2023-12-22] MEDS ORDERED: HEPA 1000U/500MLS 2,000 UNIT/1,000 ML BAG IV ONE (14:08)
[2023-12-22] MEDS ORDERED: VERAPAMIL HCL 10 MG/4 ML VIAL IV ONE (14:08)
[2023-12-22] MEDS ORDERED: MIDAZOLAM HCL 2 MG/2 ML INJ ONE (14:09)
[2023-12-22] MEDS ORDERED: HEPARIN 10,000 UNIT/10 ML VIAL IV ONE (14:09)
[2023-12-22] MEDS ORDERED: HEPARIN 5000 UNIT/ML 1 ML VIAL ONE (14:09)
[2023-12-22] MEDS ORDERED: FENTANYL CITR 100 MCG/2 ML ONE (14:09)
[2023-12-22] MEDS ORDERED: TICAGRELOR 90 MG TABLET PO ONE (14:09)
[2023-12-22] MEDS ORDERED: ATROPINE SULF 1 MG/10 ML SYR IV ONE (14:09)
[2023-12-22] MEDS ORDERED: CLOPIDOGREL 75 MG TABLET ONE (14:10)
[2023-12-22] MEDS ORDERED: FLUMAZENIL 0.1 MG/ML (5 mL VIAL) IV ONE (14:10)
[2023-12-22] MEDS ORDERED: NALOXONE 0.4 MG/ML VIAL ONE (14:10)
[2023-12-22] MEDS ORDERED: ASPIRIN 325 MG TAB ONE (14:10)
[2023-12-22] MEDS ORDERED: REGADENOSON 0.4 MG/5 ML SYR IV ONE (15:00)
[2023-12-22 16:50] VITALS: TEMP 97.5; O2SAT 100
[2023-12-22 20:23] VITALS: BP 123/48
--- NOTE | 2023-12-23 02:08 | OP ---
Date of Procedure: 12/22/2023 Surgeon: NATHANIEL REMY Procedures Performed: 1.Selective coronary angiogram. 2.Left heart catheterization. 3.IVUS of mid LAD. 4.FFR of mid LAD, it was 0.80, and on IVUS, there is significant mismatch between the artery and the stent. The stent was 2.25 and the artery was 4.0 artery. 5.PCI of mid LAD, used 3.5 x 28 mm Synergy drug-eluting stent post dilated, proximal and mid 4.0 x 8 mm NC balloon. Indication: Unstable angina. Access: Right radial artery 6-American, closed with TR band. Complications: None. Bleeding: Less than 20 mL. Anesthesia: Total sedation time was 1 hour, used fentanyl and Versed. Description Of Procedure: After risks, benefits, and alternatives were explained, the patient agreed to procedure and signed informed consent. The patient was brought into the cardiac catheterization laboratory, prepped and draped in usual sterile fashion. Then, I accessed right radial artery using pediatric micropuncture kit and placed 6-American Slender sheath and took 5-American Kihei 4 catheter ove r J-wire into the aortic root, engaged left main and then right coronary artery, took standard views, and catheter was pushed over the wire into the LV, measured the LVEDP. Pullback did not record any gradient. Then, I gave systemic heparin to assure ACT level above 250 throughout the procedure and t ook EBU 3.5 guide into the aortic root, engaged left main and took a pressure wire into the aortic ro ot and pressures were equalized and the pressure wire was advanced into the LAD and performed FFR and it was right at 0.80. Pullback did not show any drift. There was significant jump at the stent are a, so I took IVUS catheter and advanced into the LAD and there was significant mismatch between the s tent and the artery. The stent was 2.25 mm and the artery was 4 mm, so I decided to do an angioplast y and PCI, so I took a run-through wire and wired the diagonal 1 branch and then exchanged the pressu re wire for another run-through wire into the LAD and took a 3.5 x 12 mm NC balloon and post dilated the original stent and then took a 3.5 x 28 mm Synergy drug-eluting stent and placed it across the ol d stent and expanded it proximally through the proximal LAD disease and distal to the stent as well, and then I used a 4.0 x 8 mm NC balloon to post dilate the proximal and mid part of the stent and the n at the end of the procedure, diagonal 1 branch is still there and it is jailed the same way as it w as before. It did not show any worsening, so it was left alone and then I took an IVUS catheter back in and the new stent was well apposed matching this vessel size and no complications. Wires were re moved. Final angiogram was satisfactory and the catheter was removed and the sheath was removed and placed TR band with good hemostasis. Findings: 1.Left main, large and normal. 2.LAD, large vessel and proximal right before the diagonal branch takeoff, there is a 60% to 70% geovani nosis and also with significant mismatch and the size of the vessel and the stent as outlined above s tatus post successful IVUS, FFR guided PCI as above and post dilated as above with excellent results. Then mid LAD, there is focal 30% stenosis. Diagonal branch is jailed and still unchanged, but it s till has TRE-3 flow. 3.Left circumflex; large size vessel and normal. 4.RCA; large dominant, ostial 30% to 40% stenosis. 5.LVEDP elevated at 70 mmHg. Conclusions: 1.Severe mid LAD disease due to the mismatch between the stent and the artery, status post successfu l PCI guided by FFR and IVUS. 2.Moderate coronary artery disease elsewhere. Plan: Brilinta and aspirin, high-dose statin, see me in the office in 1 week and follow up periodica nell. /TYLORL Voice ID: [id number] Report ID: [id number]
== END 2023-12-22 20:21 | disposition home or self-care (01) ==
LOC: CCL 13:05
PROVIDERS: ATTEND Internal Medicine
DX: I25.110 Atherosclerotic heart disease of native coronary artery with unstable angina pectoris (principal); I10 Essential (primary) hypertension; E78.5 Hyperlipidemia, unspecified; K21.9 Gastro-esophageal reflux disease without esophagitis; Z88.0 Allergy status to penicillin
CPT/HCPCS: 93005; 85025; 80048; 36415; 83721; 85610; 85347 ×4; 85730; 71046; 93458; 76937; 93571; C1893; Q9967; C1725; C1887; C9600; J1644; J2785; J2001; J2250; J3010; J7040; 99152; 99153; J0461; J2310